=== PATIENT | male | born 1960 | race Caucasian/White ===

== ENCOUNTER 2018-10-30 03:56 | Emergency (ER) | payer MEDICAID ==
[~2018-10-30] VITALS: Ht 172.7 cm; Wt 109.0 kg
[2018-10-30] MEDS ORDERED: SODIUM CHLORIDE 0.9% 1,000 ML IV ONE (06:11)
[2018-10-30] MEDS ORDERED: LORAZEPAM 2MG/ML CPJ IV ONE (06:15)
[2018-10-30] MEDS ORDERED: HALOPERIDOL LACTATE 5MG/ML VIAL IM ONE (06:15)
[2018-10-30 08:07] LABS: HEMATOCRIT. 28.4 % (42.0-52.0); HEMOGLOBIN. 9.1 g/dL (14.0-18.0); MEAN CORPUSCULAR HEMOGLOBIN 27.5 pg (28.0-32.0); MEAN CORPUSCULAR VOLUME 86.1 fL (80.0-94.0); MEAN PLATELET VOLUME 7.5 fl (7.4-10.4); PLATELET 139 x1000/uL (130-400); RED CELL DISTRIBUTION WIDTH 19.5 % (11.6-14.6)
[2018-10-30 08:12] LABS: CHLORIDE 108 mEq/L (98-107)
[2018-10-30 08:37] LABS: PLATELET ESTIMATE NORMAL
[2018-10-30 08:50] VITALS: BP 132/86
== END 2018-10-30 08:52 | disposition home or self-care (01) ==
LOC: ER 03:56
DX: F10.229 Alcohol dependence with intoxication, unspecified (principal); G62.9 Polyneuropathy, unspecified; Y90.9 Presence of alcohol in blood, level not specified; Z87.828 Personal history of other (healed) physical injury and trauma
CPT/HCPCS: 36415; 70450; 72125; 80048; 80076; 85025; 99284; J7030

== ENCOUNTER 2018-10-30 14:02 | Emergency (ER) | payer MEDICAID ==
[~2018-10-30] VITALS: Ht 170.2 cm; Wt 75.0 kg
[2018-10-30 14:05] VITALS: BP 110/68
== END 2018-10-30 15:24 | disposition left against medical advice (07) ==
LOC: ER 14:02
DX: F10.229 Alcohol dependence with intoxication, unspecified (principal); Y90.9 Presence of alcohol in blood, level not specified
CPT/HCPCS: 99283